=== PATIENT | female | born 1960 | race Caucasian/White ===

== ENCOUNTER 2017-11-10 11:45 | Emergency (ER) | payer BC ==
[~2017-11-10] VITALS: Ht 157.5 cm; Wt 59.0 kg
[2017-11-10 12:21] LABS: HEMATOCRIT 42.2 % (36.0-46.0); HEMOGLOBIN 14.8 G/DL (11.9-15.5); MCH 30.9 PG (29.0-34.0); MCHC 35.1 G/DL (30.0-36.0); MCV 88.1 FL (83-99); PLATELET COUNT 358 K/uL (156-360); RBC DIS.WIDTH-CV 12.3 % (11.8-14.6); RBC DIS.WIDTH-SD 39.8 % (39-53); RED BLOOD COUNT 4.79 M/uL (3.80-5.20); WHITE BLOOD COUNT 11.8 K/uL (4.1-10.2)
[2017-11-10 12:40] LABS: APPEARANCE SL.HAZY ((CLEAR)); BILIRUBIN NEGATIVE; BLOOD SMALL; COLOR YELLOW ((YELLOW)); GLUCOSE (STRIP) NEGATIVE; KETONES NEGATIVE; LEUKOCYTES NEGATIVE; NITRITE POSITIVE; PROTEIN (STRIP) NEGATIVE; SPECIFIC GRAVITY 1.009 (1.000-1.030); UROBILINOGEN 0.2 MG/DL (0.2-1.0)
[2017-11-10 13:02] LABS: BACTERIA 1+ /HPF; EPITHELIAL CELLS 1+ /HPF; MUCUS TRACE /LPF; RED BLOOD CELLS 0-5 /HPF (0-5); UCUL ADDED? NO; WHITE BLOOD CELLS 0-5 /HPF (0-5)
[2017-11-10 13:38] LABS: ALKALINE PHOSPHATASE 103 IU/L (3-129); ALT (GPT) 24 IU/L (3-49); AST (GOT) 14 IU/L (2-34); CHLORIDE 93 MEQ/L (99-109); GFR ESTIMATE (CALCULATED) > 59 mL/min/; GLUCOSE 126 mg/dL (70-99); LIPASE 15 U/L (1.0-51.0); SODIUM 133 MEQ/L (136-147); TOTAL BILIRUBIN 0.6 MG/DL (0.0-1.0); TOTAL PROTEIN 7.7 G/DL (6.4-8.3); UREA NITROGEN (BUN) 14 mg/dL (9-23)
[2017-11-10] MEDS ORDERED: MOTRIN600 MG PO (14:38)
[2017-11-10] MEDS ORDERED: MACROBID100 MG PO (14:38)
[2017-11-10] MEDS ORDERED: BENTYL20 MG PO (14:38)
[2017-11-10] MEDS ORDERED: ZOFRAN4 MG PO (14:38)
[2017-11-10 15:45] VITALS: BP 134/60
== END 2017-11-10 16:34 | disposition home or self-care (01) ==
LOC: RME 11:45 → EME 11:45 → RME 16:34
DX: N39.0 Urinary tract infection, site not specified (principal); R10.11 Right upper quadrant pain; Z87.891 Personal history of nicotine dependence
CPT/HCPCS: 76705; 80053; 81003; 83690; 85027; 99281; 99284; J0500; J1885